=== PATIENT | female | born 1965 | race Two or more races ===

== ENCOUNTER 2022-04-20 20:58 | Emergency (ER) | payer SELFPAY ==
[~2022-04-20] VITALS: Ht 170.2 cm; Wt 86.5 kg
[2022-04-20 22:27] LABS: Basophils # (auto) 0 10 ^3/uL (0-0.2); Basophils % (auto) 0.7 % (0.0-2.0); Eosinophils # (auto) 0.1 10 ^3/uL (0-0.8); Eosinophils % (auto) 1.8 % (0.0-7.0); Hemoglobin 12.2 g/dL (12.2-16.2); Lymphocytes # (auto) 1.8 10 ^3/uL (0.4-5.4); Lymphocytes % (auto) 29.2 % (10.0-50.0); Mean Corpuscular Hemoglobin 29.5 pg (28.0-32.0); Mean Corpuscular Hgb Conc. 32.9 g/dL (32.0-36.0); Mean Corpuscular Volume 89.6 fL (80.0-100.0); Monocytes # (auto) 0.5 10 ^3/uL (0-1.3); Monocytes % (auto) 8.4 % (0.0-12.0); Neutrophils # (auto) 3.7 10 ^3/uL (1.6-8.6); Neutrophils % (auto) 59.9 % (37.0-80.0); Nucleated Red Blood Cells % 0.1 %; Red Blood Cells 4.13 10^6/uL (4.0-5.20); Red Cell Distribution Width 13.7 % (11.8-14.3); White Blood Cell 6.2 10^3/uL (4.4-10.8)
[2022-04-20 22:35] LABS: Albumin 3.4 g/dL (3.4-5.0); BUN/Creatinine Ratio 10.9; Calcium 8.9 mg/dL (8.5-10.1)
[2022-04-20 22:44] LABS: Bilirubin, Total 0.5 mg/dL (0.2-1.0); Total Protein 7.2 g/dL (6.4-8.2)
[2022-04-20 22:45] LABS: Potassium 2.8 mmol/L (3.5-5.1)
[2022-04-21] MEDS ORDERED: POTASSIUM CHL 20 Meq TABLET PO ONE (00:45)
[2022-04-21 01:40] VITALS: BP 150/78
== END 2022-04-21 02:12 | disposition home or self-care (01) ==
LOC: EDBD 20:58 → ER 21:03
DX: I87.8 Other specified disorders of veins (principal); I89.0 Lymphedema, not elsewhere classified; G89.29 Other chronic pain; M54.9 Dorsalgia, unspecified; R07.89 Other chest pain
CPT/HCPCS: 36415; 71045; 80053; 83880; 84484; 85025; 85379; 93005; 93970